=== PATIENT | male | born 1980 | race African-American/Black ===

== ENCOUNTER → 2024-07-07 08:27 | Outpatient (REF) | payer OTHER, SELFPAY | LOC: RCS 08:27 | PROVIDERS: ATTENDING PHYSICIAN Internal Medicine Cardiovascular Disease; FAMILY PHYSICIAN Family Medicine | DX: R06.09 Other forms of dyspnea (principal) | CPT/HCPCS: 93017; 93350 ==

== ENCOUNTER → 2024-07-28 09:24 | Outpatient (REF) | payer OTHER, SELFPAY | LOC: HWRCS 09:24 | PROVIDERS: ATTENDING PHYSICIAN Internal Medicine Cardiovascular Disease; FAMILY PHYSICIAN Family Medicine | DX: R06.09 Other forms of dyspnea (principal) | CPT/HCPCS: 93306 ==